=== PATIENT | male | born 1970 | race Caucasian/White ===

== ENCOUNTER → 2020-07-10 12:16 | Outpatient (CLI) | payer OTHER, MEDICARE, SELFPAY ==
[2020-07-10 13:28] LABS: Anion Gap 14.6 mEq/L (5-15); Blood Urea Nitrogen 25 mg/dl (9-20); Calcium 9.7 mg/dl (8.4-10.2); Carbon Dioxide 25 mmol/L (22.0-30.0); Chloride 103 mmol/L (98-107); Estimated Glomerular Filt Rate 79 ml/min (>60); GFR (African American) 95 ML/MIN (>60); Glucose 236 mg/dl (74-100); Potassium 4.6 mmoL/L (3.5-5.1); Sodium 138 mmol/L (136-145)
[2020-07-10 13:43] LABS: Basophils # 0.1 K/mm3 (0-0.2); Basophils % 1.1 % (0.1-2.0); Eosinophils # 0.2 K/mm3 (0.0-0.4); Eosinophils % 3.1 % (0.1-12.0); Hematocrit 42.9 % (42.0-52.0); Hemoglobin 14.5 g/dL (14.1-18.0); Lymphocytes # 2.3 K/mm3 (0.7-4.5); Lymphocytes % 35.7 % (10-50); Mean Corpuscular HGB Conc 33.9 g/dL (31.8-35.4); Mean Corpuscular Hemoglobin 28.8 pg (27.0-31.2); Mean Corpuscular Volume 84.9 fl (80-94); Mean Platelet Volume 8.1 fl (7.4-10.4); Monocytes # 0.4 K/mm3 (0.1-1.0); Monocytes % 5.6 % (1.7-9.3); Neutrophils # 3.5 K/mm3 (1.8-7.8); Neutrophils % 54.5 % (37.0-80.0); Platelet Count 276 K/mm3 (142-424); Red Blood Count 5.05 M/mm3 (4.60-6.20); Red Cell Distribution Width 14.5 % (11.5-17.5); White Blood Count 6.4 K/mm3 (4.8-10.8)
[2020-07-10 16:00] LABS: Coronavirus 19 IgG Antibody Negative (Negative); Coronavirus 19 IgM Antibody Negative (Negative)
== END ==
PROVIDERS: Visit Provider Internal Medicine
DX: Z01.818 Encounter for other preprocedural examination (principal); I20.8 Other forms of angina pectoris
CPT/HCPCS: 36415; 80048; 85025; 86328

== ENCOUNTER 2020-07-11 08:28 | Day surgery (SDC) | payer OTHER, MEDICARE, SELFPAY ==
[2020-07-11] VITALS (15 sets, daily range): BP systolic 111–186; BP diastolic 75–109; PULSE 68–86; RESP 12–18; TEMP 36.3; O2SAT 91–100; BMI 42.9
--- NOTE | 2020-07-11 | IR_ITS ---
APPROVED REPORT Patient Location: Outpatient Field Assessor: CHICO Giron RT (R) PROCEDURES Left heart catheterization Left ventriculogram Selective coronary angiogram FFR to the LAD Drug-eluting stent deployment to the proximal mid LAD INDICATION Coronary artery disease, Typical angina pectoris, Ischemic response to adenosine with an FFR of 0.69 Informed consent was obtained prior to the procedure. COMPLICATIONS none Estimated Blood Loss: less than 10 mls TECHNIQUE One percent lidocaine used to anesthetize the right anterior aspect of the wrist. The right radial artery was accessed via the Seldinger technique. A 6 [place] sheath was placed in the right radial artery. 2.5 mg of verapamil, 800 mcg of nitroglycerin, 1mg Lidocaine and 5000 U Heparin were given through the arterial sheath. The Poppa catheter was also used to perform left heart catheterization, left ventriculogram and selective coronary angiogram. At the end of the procedure therapeutic heparin was administered giving a therapeutic ACT. Initially the Poppa catheter was used for the intervention however due to poor intubation to the left main artery a JL 3 was placed into the a sending aorta and the FFR wire was normalized. The catheter was used to intubate the left main artery and the wire was placed distally into the LAD. Adenosine was infused and the FFR index nadired at 0.69. At this point a 3 mm x 34 mm resolute liberty stent was deployed at 20 logan reducing the severe stenosis to 0%. Excellent angiographic results were obtained with excellent JON-3 flow present before and after the procedure. At the end of the procedure the apparatus was removed the sheath was removed and hemostasis was achieved using TR banding patient was transferred to the postop holding area in stable condition ANGIOGRAPHIC RESULTS The left main artery Normal The left anterior descending artery Has proximal eccentric 10 to 20% stenosis followed by an additional concentric 60% stenosis. The mid LAD has tandem 40 to 50% stenoses. The circumflex artery There is a dominant vessel. A large ramus intermedius has a stent in the ostial proximal mid segment which is subtotally occluded with very scant distal filling of a small vessel. The circumflex artery itself has a proximal 20% stenosis with 20% stenosis in the terminal smaller obtuse marginal artery The right coronary artery Is nondominant and has an anterior takeoff. A stent in the proximal segment is widely patent free of in-stent restenosis with excellent proximal distal transitioning. There is additional 40 and 50% stenoses in the mid segment however the right coronary artery is small and supplies a very small amount of vascularity to the left ventricle The HOWE ventriculogram reveals Preserved with inferior wall hypokinesis estimate ejection fraction 55% The left ventricular end-diastolic pressure 20 mmHg IMPRESSION Coronary artery disease as described above Hemodynamically severe stenosis in the proximal LAD with successful stenting of the proximal to mid LAD reducing the stenosis to 0% Persistent moderate tandem lesions in the mid LAD at a 2 mm segment of vessel Preserved ejection fraction with mild regional wall motion abnormality Elevated LVEDP PLAN 1. Dual antiplatelet therapy 2. Risk factor modification 3. LDL less than 55 4. Avoidance of tobacco products 5. Cardiac rehabilitation 6. Maximize antianginal medications Electronically signed by : Boy Bahena, 07/11/2020 10:37:04
[2020-07-11 11:29] LABS: CATHL Activated Clotting Time > 400 SEC (74-125)
--- NOTE | 2020-07-11 15:27 | HMH.PHACLD ---
Jonathon Pennington has received discharge medication counseling on the following medications: PATIENT IS CURRENTLY TAKING CARVEDILOL 25 MG BID, ASPIRIN 81 MG DAILY, AND PLAVIX 75 MG DAILY. MD CHANGING PLAVIX TO BRILINTA 90 MG BID AND ADDING LISINOPRIL 10 MG DAILY. PATIENT WITH STATIN ALLERGY.
== END 2020-07-11 14:32 | disposition home or self-care (01) ==
LOC: CATHLAB 08:32
PROVIDERS: PCP Family Medicine; Visit Provider Internal Medicine
DX: I25.118 Atherosclerotic heart disease of native coronary artery with other forms of angina pectoris (principal); I11.0 Hypertensive heart disease with heart failure; I50.30 Unspecified diastolic (congestive) heart failure; I27.20 Pulmonary hypertension, unspecified; I25.2 Old myocardial infarction; Z95.5 Presence of coronary angioplasty implant and graft; E11.9 Type 2 diabetes mellitus without complications; Z88.0 Allergy status to penicillin; Z88.1 Allergy status to other antibiotic agents; Z88.8 Allergy status to other drugs, medicaments and biological substances; Z79.4 Long term (current) use of insulin; Z79.82 Long term (current) use of aspirin; Z79.899 Other long term (current) drug therapy
CPT/HCPCS: 85347; 92928; 93458; 93571; 99152; 99153; C1725; C1769; C1876; C9600; J0153; J1644; J2405; Q9967

== ENCOUNTER → 2020-10-13 15:04 | Outpatient (CLI) | payer OTHER, MEDICARE, SELFPAY ==
--- NOTE | 2020-10-13 15:06 | CA_ITS ---
APPROVED REPORT EXAM: Comprehensive 2D, Doppler, and color-flow Echocardiogram [place] Worker: Rachel Carney RT(R) Ht: 5 ft 6 in Wt: 267lbs BSA: 2.26 BP: 133/73 mmHg Indications: CP, ex smoker, HTN, DM, SOB, SWEET, obesity, hyperlipidemia, CAD, DD, emphysema, stent, GERD Echo Enhancing Agent Indication: Endocardial border delineation Agent(s) / Amount(s) Used: Definity 2 cc 2D Dimensions LVOT 1.94 cm (M/F) 1.5-2.5 M-Mode Dimensions RVDd 2.12 cm (0.9-2.6) LA Diam 3.28 cm (1.9-4.0) LVDd 4.96 cm (3.5-5.7) Ao Diam 3.05 cm (2.0-3.7) LVDs 3.79 cm (3.5-5.7) IVSd 0.83 cm (0.6-1.1) PWd 0.83 cm (0.6-1.1) EF (Teich) 46.90% FS 23.60% EDV (Teich) 116.10 mL ESV (Teich) 61.60 mL LV Diastology E Decel Time 233.00 (160-240 msec) E/A Ratio 1.2 MED E' 6.50 (< 7 cm/sec) E'/MED E' Ratio 14.14 (>14) LAT E' 8.30 (<10 cm/sec) E/LAT E' Ratio 11.07 (>14) Mitral Valve MV E Max Caden. 92.00 (40-130 cm/s) MV A Velocity 77.00 (40-130 cm/s) E/A Ratio 1.20 MV Decel. Time 233.00 (160-240 ms) MV PHT 68.00 ms Left Ventricle Left atrium is mildly enlarged, left ventricle is normal size, mild concentric left ventricular hypertrophy, visually estimated ejection fraction 55% with no regional wall motion abnormality, grade 1 diastolic dysfunction seen without tissue Doppler evidence of raise left atrial pressure. Definity contrast was utilized to delineate the endocardial surfaces. Right Ventricle Right atrium and right ventricle are mildly enlarged with normal contractility. Aortic Valve Aortic valve is minimally thickened and fibrosed, there is no aortic stenosis or aortic insufficiency. Mitral Valve Mitral valve is grossly normal, there is mild mitral regurgitation. Tricuspid Valve Tricuspid valve grossly normal, there is mild tricuspid regurgitation, tricuspid regurgitation jet velocity is inadequate for calculation of the right ventricular systolic pressure. Pulmonic Valve Pulmonic valve is poorly visualized. Aortic root is normal size. Pericardium No significant pericardial effusion noted. Conclusion 1. Mild biatrial enlargement, normal left ventricular size, mild concentric left ventricular hypertrophy, visually estimated ejection fraction 55% with no regional wall motion abnormality, grade 1 diastolic dysfunction seen without tissue Doppler evidence of raise left atrial pressure. 2. Mildly enlarged right ventricle with normal contractility. 3. Mild mitral and tricuspid regurgitation. 4. No significant pericardial effusion noted. Electronically signed by : Julio Palma, 10/14/2020 18:33:10
== END ==
PROVIDERS: PCP Family Medicine; Visit Provider Urology
DX: R07.89 Other chest pain (principal); R06.00 Dyspnea, unspecified; I11.9 Hypertensive heart disease without heart failure; I25.10 Atherosclerotic heart disease of native coronary artery without angina pectoris; I27.20 Pulmonary hypertension, unspecified; E11.9 Type 2 diabetes mellitus without complications; E66.01 Morbid (severe) obesity due to excess calories; E78.2 Mixed hyperlipidemia; H53.8 Other visual disturbances; J43.9 Emphysema, unspecified; Z79.4 Long term (current) use of insulin
CPT/HCPCS: 93306; Q9957

== ENCOUNTER → 2020-11-10 14:15 | Outpatient (CLI) | payer OTHER, MEDICARE, SELFPAY ==
--- NOTE | 2020-11-10 14:29 | CT_ITS ---
PROCEDURE: CT CHEST WO CON CLINICAL INDICATION: chest pain/dyspnea [place] since having a heart attack 5 years ago Worsening in the last year COMPARISON: No exams were available for comparison TECHNIQUE: Axial images obtained with sagittal and coronal reformats. All CT scans at the facility use one or more dose reduction, viz: automated exposure control, ma/kV adjustment per patient size (including targeted exams where dose is matched to indication, i.e. head), or iterative reconstruction technique. FINDINGS: HEART AND MEDIASTINAL STRUCTURES: Prior thyroidectomy. No mediastinal or hilar mass. Coronary artery stents and or calcification. No evidence of aortic aneurysm. LUNGS AND PLEURAL SPACES: There is a noncalcified 4 mm nodule right upper lobe posteriorly image 16. Subpleural 4 mm nodule right upper lobe anteriorly image 36. 4 mm fissural nodule right minor fissure image 37. 5 mm subpleural nodule right middle lobe anteriorly image 44. 4 mm left upper lobe anteriorly image 27 BONY STRUCTURES: Degenerative changes thoracic spine UPPER ABDOMEN: Fatty liver ADDITIONAL FINDINGS: Gynecomastia IMPRESSION: 1. Scattered small pulmonary nodules as detailed above. These are nonspecific and could be post inflammatory/infectious or neoplastic. Consider six-month follow-up to confirm stability. 2. Other nonacute findings as described above. No acute finding Dictated by: Manoj Carrasco MD 11/11/2020 12:10 Manoj Carrasco MD in [place] 11/11/2020 12:10
== END ==
PROVIDERS: PCP Family Medicine; Visit Provider Urology
DX: R07.9 Chest pain, unspecified (principal); R06.00 Dyspnea, unspecified; J44.9 Chronic obstructive pulmonary disease, unspecified; I11.9 Hypertensive heart disease without heart failure; I25.10 Atherosclerotic heart disease of native coronary artery without angina pectoris; I27.20 Pulmonary hypertension, unspecified; E11.9 Type 2 diabetes mellitus without complications; E66.9 Obesity, unspecified; E78.5 Hyperlipidemia, unspecified; H53.8 Other visual disturbances
CPT/HCPCS: 71250

== ENCOUNTER → 2020-12-15 10:29 | Outpatient (CLI) | payer OTHER, MEDICARE, SELFPAY ==
[2020-12-15 11:05] LABS: Basophils # 0.1 K/mm3 (0-0.2); Basophils % 1.5 % (0.1-2.0); Eosinophils # 0.5 K/mm3 (0.0-0.4); Hemoglobin 11.9 g/dL (14.1-18.0); Lymphocytes # 2.1 K/mm3 (0.7-4.5); Lymphocytes % 29.7 % (10-50); Mean Corpuscular HGB Conc 33.9 g/dL (31.8-35.4); Mean Corpuscular Hemoglobin 28.4 pg (27.0-31.2); Mean Corpuscular Volume 83.9 fl (80-94); Mean Platelet Volume 7.3 fl (7.4-10.4); Monocytes # 0.4 K/mm3 (0.1-1.0); Neutrophils # 4.1 K/mm3 (1.8-7.8); Neutrophils % 56.8 % (37.0-80.0); Platelet Count 271 K/mm3 (142-424); Red Blood Count 4.17 M/mm3 (4.60-6.20); Red Cell Distribution Width 15.2 % (11.5-17.5); White Blood Count 7.2 K/mm3 (4.8-10.8)
[2020-12-15 11:15] LABS: Chloride 102 mmol/L (98-107); Potassium 4.5 mmoL/L (3.5-5.1); Sodium 137 mmol/L (136-145)
[2020-12-15 11:18] LABS: Anion Gap 13.5 mEq/L (5-15); Blood Urea Nitrogen 25 mg/dl (9-20); Carbon Dioxide 26 mmol/L (22.0-30.0); Estimated Glomerular Filt Rate 79 ml/min (>60); GFR (African American) 95 ML/MIN (>60)
[2020-12-15 11:19] LABS: Calcium 9.6 mg/dl (8.4-10.2); Glucose 282 mg/dl (74-100)
[2020-12-15 11:45] LABS: Thyroid Stimulating Hormone 2.11 uIU/mL (0.465-4.68)
[2020-12-20 00:05] LABS: Aspergillus flavus Negative (Neg:<1:1); Aspergillus fumigatus Negative (Neg:<1:1); Aspergillus niger Negative (Neg:<1:1)
[2020-12-20 05:07] LABS: Blastomyces Antibody Negative (Neg:<1:1)
[2020-12-21 02:17] LABS: D001-IgE D pteronyssinus 0.11 kU/L (Class 0/I); D002-IgE D farinae <0.10 kU/L (Class 0); E001-IgE Cat Dander <0.10 kU/L (Class 0); E005-IgE Dog Dander <0.10 kU/L (Class 0); G002-IgE Bermuda Grass <0.10 kU/L (Class 0); G006-IgE Timothy Grass 0.17 kU/L (Class 0/I); I006-IgE Cockroach, German <0.10 kU/L (Class 0); Immunoglobulin E, Total 115 IU/mL (6-495); M001-IgE Penicillium chrysogen <0.10 kU/L (Class 0); M002-IgE Cladosporium herbarum <0.10 kU/L (Class 0); M003-IgE Aspergillus fumigatus <0.10 kU/L (Class 0); M006-IgE Alternaria alternata <0.10 kU/L (Class 0); T001-IgE Maple/Box Elder <0.10 kU/L (Class 0); T003-IgE Common Silver Birch <0.10 kU/L (Class 0); T006-IgE Cedar, Mountain 0.14 kU/L (Class 0/I); T007-IgE Oak, White 0.15 kU/L (Class 0/I); T008-IgE Elm, American <0.10 kU/L (Class 0); T010-IgE Walnut <0.10 kU/L (Class 0); T011-IgE Maple Leaf Sycamore <0.10 kU/L (Class 0); T014-IgE Cottonwood <0.10 kU/L (Class 0); T015-IgE Ash, White <0.10 kU/L (Class 0); T022-IgE Pecan, Hickory <0.10 kU/L (Class 0); T070-IgE White Mulberry <0.10 kU/L (Class 0); W001-IgE Ragweed, Short <0.10 kU/L (Class 0); W011-IgE Thistle, Russian <0.10 kU/L (Class 0); W014-IgE Pigweed, Common <0.10 kU/L (Class 0); W018-IgE Sheep Sorrel 0.11 kU/L (Class 0/I)
[2020-12-21 15:17] LABS: E072-IgE Mouse Urine <0.10 kU/L (Class 0)
== END ==
PROVIDERS: Internal Medicine Cardiovascular Disease; Visit Provider Internal Medicine Pulmonary Disease
DX: J84.10 Pulmonary fibrosis, unspecified (principal); J45.909 Unspecified asthma, uncomplicated; I20.9 Angina pectoris, unspecified; I11.9 Hypertensive heart disease without heart failure; E78.5 Hyperlipidemia, unspecified; I25.2 Old myocardial infarction; I27.20 Pulmonary hypertension, unspecified; E03.9 Hypothyroidism, unspecified
CPT/HCPCS: 36415; 80048; 82533; 82785; 84443; 85025; 86003; 86606; 86612

== ENCOUNTER → 2021-05-09 14:50 | Outpatient (CLI) | payer OTHER, MEDICARE, SELFPAY ==
--- NOTE | 2021-05-09 15:20 | PC.NURSE ---
PFT complete without incident. Albuterol 0.083% given via HHN, per protocol, Pt tolerated tx well.
== END ==
PROVIDERS: PCP Family Medicine; Visit Provider Internal Medicine Pulmonary Disease
DX: R06.09 Other forms of dyspnea (principal)
CPT/HCPCS: 94060; 94726; 94729

== ENCOUNTER → 2021-06-18 14:55 | Outpatient (CLI) | payer OTHER, MEDICARE, SELFPAY ==
--- NOTE | 2021-06-18 14:55 | CT_ITS ---
PROCEDURE: CT CHEST WO CON CLINICAL INDICATION: 6 mnth follow up COMPARISON: CT CT CHEST WO CON from 11/10/2020 TECHNIQUE: Axial images obtained with sagittal and coronal reformats. All CT scans at the facility use one or more dose reduction, viz: automated exposure control, ma/kV adjustment per patient size (including targeted exams where dose is matched to indication, i.e. head), or iterative reconstruction technique. FINDINGS: HEART AND MEDIASTINAL STRUCTURES: Prior thyroidectomy. No mediastinal or hilar mass or adenopathy. Numerous coronary artery stents and or calcifications. LUNGS AND PLEURAL SPACES: There has been no significant change in the numerous small pulmonary nodules. No new nodules are evident. No infiltrates or effusions. BONY STRUCTURES: No acute bony abnormalities apparent. UPPER ABDOMEN: Fatty liver ADDITIONAL FINDINGS: No other significant abnormalities. IMPRESSION: Stable CT appearance of the chest with no change in the small pulmonary nodules. Suggest 12 month follow-up to confirm 18 month stability Dictated by: Manoj Carrasco MD 06/19/2021 10:14 Manoj Carrasco MD in [place] 06/19/2021 10:14
== END ==
PROVIDERS: PCP Family Medicine; Visit Provider Internal Medicine Pulmonary Disease
DX: R91.8 Other nonspecific abnormal finding of lung field (principal)
CPT/HCPCS: 71250

== ENCOUNTER → 2021-07-31 13:41 | Outpatient (CLI) | payer OTHER, MEDICARE, SELFPAY ==
[2021-07-31 15:14] LABS: Triiodothryronine (T3) Uptake 32 % (23.5-40.5)
[2021-07-31 15:15] LABS: Free Thyroxine Index 3.8 ug/dL (5.93-13.13)
[2021-07-31 15:29] LABS: Thyroid Stimulating Hormone 4.33 uIU/mL (0.465-4.68)
[2021-07-31 15:40] LABS: Anion Gap 12.3 mEq/L (5-15); Blood Urea Nitrogen 37 mg/dl (9-20); Calcium 9.5 mg/dl (8.4-10.2); Carbon Dioxide 28 mmol/L (22.0-30.0); Chloride 102 mmol/L (98-107); Estimated Glomerular Filt Rate 70 ml/min (>60); GFR (African American) 85 ML/MIN (>60); Glucose 212 mg/dl (74-100); Magnesium 1.6 mg/dl (1.6-2.3); Potassium 5.3 mmoL/L (3.5-5.1); Sodium 137 mmol/L (136-145)
[2021-07-31 15:48] LABS: Intact Parathyroid Hormone 79.2 pg/mL (7.5-53.5); NT Pro Brain Natriuretic Pep. 34.3 pg/mL (0-125)
== END ==
PROVIDERS: Visit Provider Physician Assistant
DX: R06.00 Dyspnea, unspecified (principal); I51.89 Other ill-defined heart diseases; M79.10 Myalgia, unspecified site; M62.838 Other muscle spasm
CPT/HCPCS: 36415; 80048; 83735; 83880; 83970; 84436; 84443; 84479

== ENCOUNTER → 2021-11-09 07:50 | Outpatient (CLI) | payer BC, MEDICARE, SELFPAY ==
--- NOTE | 2021-11-09 07:50 | CT_ITS ---
FINAL REPORT TECHNIQUE: Thin section axial CT images of the facial bones and sinuses were obtained without contrast. Coronal reformatted images were also obtained.This study was performed with techniques to keep radiation doses as low as reasonably achievable, (ALARA). Individualized dose reduction techniques using automated exposure control or adjustment of mA and/or kV according to the patient''''s size were employed. CLINICAL HISTORY: chronic sinusitis, difficulty swallowing FINDINGS: There is mucosal thickening of multiple ethmoid air cells and of the bilateral maxillary sinuses and the frontal sinuses. A mucous retention cyst or polyp is seen in the lateral left maxillary sinus measuring 14 mm. There is narrowing of the bilateral maxillary sinus ostia secondary to mucosal thickening. There is mild leftward nasal septal deviation. No fluid levels are identified. The ostiomeatal units have an unremarkable appearance. No fracture or acute bony abnormality is identified. IMPRESSION: Sinus disease as above. Reviewed, Interpreted and Dictated by Chandler Rizzo III, MD Transcribed by Delfina Jett Authenticated by Chandler Rizzo III, MD on 11/09/2021 09:54:10 AM [facility]
--- NOTE | 2021-11-09 07:50 | FL_ITS ---
FINAL REPORT CLINICAL HISTORY: . dysphagia; fluro time: 1:33; dose: 160.20 mGy FINDINGS: ESOPHAGRAM HISTORY: dysphagia PROCEDURE: The patient ingested barium. Spot and overhead films were obtained. FINDINGS: The esophagus is normal. There is no hiatal hernia. There is no gastroesophageal reflux. Peristalsis is normal.A 13 mm barium tablet was administered. This appeared to be delayed in passage in the upper thoracic esophagus. However, subsequent swallows of barium demonstrate no appreciable narrowing and the tablet passed. IMPRESSION: Normal esophagram. Films reviewed , interpreted and dictated by Dr. Rizzo Transcribed by Wade Shea PA-C. Reviewed, Interpreted and Dictated by Chandler Rizzo III, MD Transcribed by ARMIDA Lucero Authenticated by Chandler Rizzo III, MD on 11/09/2021 09:06:[address] [facility]
== END ==
PROVIDERS: PCP Family Medicine; Visit Provider Otolaryngology
DX: R13.10 Dysphagia, unspecified (principal); E03.9 Hypothyroidism, unspecified; J32.9 Chronic sinusitis, unspecified
CPT/HCPCS: 36415; 70486; 74220; 84443

== ENCOUNTER → 2022-01-09 11:30 | Outpatient (CLI) | payer BC, MEDICARE, SELFPAY ==
[2022-01-10 08:26] LABS: MANUAL DIFFERENTIAL MANUAL DIFFERENTIAL (MANUAL DIFF)
[2022-01-10 09:10] LABS: Basophils # 0.1 K/mm3 (0-0.2); Basophils % 1.2 % (0.1-2.0); Eosinophils # 0.4 K/mm3 (0.0-0.4); Eosinophils % 7.4 % (0.1-12.0); Hematocrit 43.6 % (42.0-52.0); Hemoglobin 14.8 g/dL (14.1-18.0); Lymphocytes # 1.9 K/mm3 (0.7-4.5); Mean Corpuscular Hemoglobin 31.1 pg (27.0-31.2); Mean Corpuscular Volume 91.6 fl (80-94); Mean Platelet Volume 8.4 fl (7.4-10.4); Monocytes # 0.4 K/mm3 (0.1-1.0); Monocytes % 5.9 % (1.7-9.3); Neutrophils # 3.3 K/mm3 (1.8-7.8); Neutrophils % 54.5 % (37.0-80.0); Platelet Count 261 K/mm3 (142-424); Red Blood Count 4.75 M/mm3 (4.60-6.20); Red Cell Distribution Width 13.2 % (11.5-17.5)
[2022-01-10 10:00] LABS: Lymphocytes % 22 % (10-50); Monocytes % 5 % (2-9); Neutrophils % 73 % (42-76); Platelet Estimate Normal; RBC Morphology Normal; Total Cells Counted 100
[2022-01-10 10:10] LABS: Alanine Aminotransferase 17 U/L (12-78); Albumin Level 4.3 g/dl (3.5-5.0); Alkaline Phosphatase 69 U/L (38-126); Anion Gap 12.7 mEq/L (5-15); Aspartate Amino Transferase 18 U/L (17-59); Bilirubin,Total 0.3 mg/dl (0.2-1.3); Blood Urea Nitrogen 17 mg/dl (9-20); Calcium 9.2 mg/dl (8.4-10.2); Carbon Dioxide 27 mmol/L (22.0-30.0); Chloride 103 mmol/L (98-107); Estimated Glomerular Filt Rate 102 ml/min (>60); GFR (African American) 123 ML/MIN (>60); Globulin 2.2 g/dL (1.3-3.2); Glucose 110 mg/dl (74-100); Potassium 3.7 mmoL/L (3.5-5.1); Sodium 139 mmol/L (136-145); Total Protein,Serum 6.5 g/dl (6.3-8.2)
== END ==
PROVIDERS: PCP Family Medicine; Visit Provider Otolaryngology
DX: J32.9 Chronic sinusitis, unspecified (principal); J34.3 Hypertrophy of nasal turbinates; Z20.822 Contact with and (suspected) exposure to COVID-19
CPT/HCPCS: 36415; 80053; 85007; 85014; 85018; 85048; 85049; C9803; U0003; U0005

== ENCOUNTER 2022-05-30 13:26 | Inpatient (IN) | payer BC, MEDICARE, SELFPAY ==
[2022-05-30 12:01] LABS: Basophils # 0.1 K/mm3 (0-0.2); Basophils % 1.1 % (0.1-2.0); Eosinophils # 0.2 K/mm3 (0.0-0.4); Hematocrit 39.4 % (42.0-52.0); Hemoglobin 12.9 g/dL (14.1-18.0); Lymphocytes # 1.8 K/mm3 (0.7-4.5); Lymphocytes % 28.3 % (10-50); Mean Corpuscular HGB Conc 32.7 g/dL (31.8-35.4); Mean Corpuscular Hemoglobin 28.2 pg (27.0-31.2); Mean Corpuscular Volume 86.3 fl (80-94); Monocytes # 0.4 K/mm3 (0.1-1.0); Monocytes % 5.8 % (1.7-9.3); Neutrophils # 3.9 K/mm3 (1.8-7.8); Neutrophils % 61.8 % (37.0-80.0); Platelet Count 316 K/mm3 (142-424); Red Blood Count 4.57 M/mm3 (4.60-6.20); Red Cell Distribution Width 15.1 % (11.5-17.5); White Blood Count 6.4 K/mm3 (4.8-10.8)
[2022-05-30 12:27] LABS: Chloride 103 mmol/L (98-107); Sodium 139 mmol/L (136-145)
[2022-05-30 12:28] LABS: Potassium 4.6 mmoL/L (3.5-5.1)
[2022-05-30 12:29] LABS: Troponin I 0.06 ng/ml (0.00-0.034)
[2022-05-30 12:30] LABS: Alanine Aminotransferase 35 U/L (12-78); Albumin Level 3.9 g/dl (3.5-5.0); Alkaline Phosphatase 87 U/L (38-126); Anion Gap 15.6 mEq/L (5-15); Aspartate Amino Transferase 41 U/L (17-59); Bilirubin,Unconjugated 0.1 mg/dL (0.0-1.1); Blood Urea Nitrogen 25 mg/dl (9-20); Calcium 8.9 mg/dl (8.4-10.2); Carbon Dioxide 25 mmol/L (22.0-30.0); Estimated Glomerular Filt Rate 101 ml/min (>60); GFR (African American) 122 ML/MIN (>60); Glucose 276 mg/dl (74-100); Total Protein,Serum 6.2 g/dl (6.3-8.2)
[2022-05-30 12:31] LABS: Bilirubin,Indirect 0.1 mg/dL (0.0-0.9); Bilirubin,Total < 0.1 mg/dl (0.2-1.3)
[2022-05-30 12:47] LABS: Free T4 (Free Thyroxine) 2.15 ng/dl (0.78-2.19)
[2022-05-30 13:02] LABS: Thyroid Stimulating Hormone < 0.02 uIU/mL (0.465-4.68)
--- NOTE | 2022-05-30 14:27 | PC.NURSE ---
patient walked to floor from front [facility]
[2022-05-30 14:35] VITALS: PULSE 80
[2022-05-30 14:37] VITALS: BP 167/86; PULSE 75; RESP 14; TEMP 36.7; O2SAT 96; BMI 40.9
--- NOTE | 2022-05-30 15:18 | EXP.CARD.PN ---
Subjective Subjective Date: 05/30/22 Time: 15:23 Interval history: Office visit today Patient here for CP/angina. Has been having cp & pressure with activity. see HPI SOB with cp CAD is present. DOREEN in 07/2020 to LAD with 50-60% stenosis to RCA DAPT with ASA and Plavix. Seems like all started after having a stent placed for kidney stone, with heavy dose of contrast BP is good today. Pt wt is down 4 pounds. LDL goal is < 55, LDL is 76. Pt is not on a statin, he couldn't tolerate lipitor and he stopped the crestor thinking of his muscle aches but it hasn't improved so will restart this. DM is present, managed by PCP. ECHO in 10/2020 showed EF of 55% with diastolic dysfunction. EKG is NSR, low voltage QRS, T wave abnormality, consider inferior ischemia, rate is 81 bpm. BMP, CBC, Troponin, Liver, TSH, Free T4 today. will get a GXT Myoview to rule out ischemia due to angina. Start Ranexa 500 mg BID for angina. RTC 1 week, and sooner as needed. This document was scribed by me, Ling Boyle RN for Ashley Fairchild APRN. The patient's troponin is positive at 0.06 consistent with a non-ST elevation myocardial infarction. The patient has been contacted and will return to [facility] for admission due to his non-STEMI. Will admit the patient for a non-STEMI and the patient will undergo left cardiac catheterization tomorrow. The patient will be n.p.o. after midnight. We will get a chest x-ray. Will repeat labs in the morning. Clinical evaluation and indication for diagnostic coronary angiography includes Known CAD, New Onset Angina <= 2 months and Worsening Angina Patient is describing chest pain symptom as Typical Angina Clinical risk factors of nonstemi, CAD, HTN, HLD, DM Anti-anginal Medication therapy includes: Betablocker and Ranolozine Will plan to proceed with LHC/Coronary angiography with R radial access. The patient has been educated on the risks, benefits and alternatives of proceeding with LHC/Coronary angiography with R radial access. The patient verbalizes understanding and is agreeable in proceeding with the procedure. SCAI: A7 Exam Data for Last 24 hours Vital signs and Labs for Last 24 Hours: Temp Pulse Resp BP Pulse Ox 98.1 F 75 14 167/86 H 96 05/30/22 14:37 05/30/22 14:37 05/30/22 14:37 05/30/22 14:37 05/30/22 14:37 Laboratory Results - last 24 hr 05/30/22 11:48: WBC 6.4, RBC 4.57 L, Hgb 12.9 L, Hct 39.4 L, MCV 86.3, MCH 28.2, MCHC 32.7, RDW 15.1, Plt Count 316, MPV 8.0, Neut % (Auto) 61.8, Lymph % (Auto) 28.3, Rapides % (Auto) 5.8, Eos % (Auto) 3.0, Baso % (Auto) 1.1, Neut # (Auto) 3.9, Lymph # (Auto) 1.8, Rapides # (Auto) 0.4, Eos # (Auto) 0.2, Baso # (Auto) 0.1 05/30/22 11:48: Sodium 139, Potassium 4.6, Chloride 103, Carbon Dioxide 25, Anion Gap 15.6 H, BUN 25 H, Creatinine 0.80, Estimated GFR 101, Est GFR ( Amer) 122, Glucose 276 H, Calcium 8.9, Total Bilirubin < 0.1 L, Direct Bilirubin 0.0, Conjugated Bilirubin 0.0, Indirect Bilirubin 0.1, Unconjugated Bilirubin 0.1, AST 41, ALT 35, Alkaline Phosphatase 87, Total Protein 6.2 L, Albumin 3.9, TSH < 0.02 L 05/30/22 11:48: Free T4 2.15 05/30/22 11:48: Troponin I 0.06 H I & O for Last 24 hours: Intake & Output 05/28/22 05/29/22 05/30/22 05/31/22 11:59 11:59 11:59 11:59 Weight 253 lb 9 oz Progress Note: A&P Assessment and plan (1) NSTEMI (non-ST elevated myocardial infarction): Status: Acute (2) CAD (coronary artery disease): Status: Chronic (3) Hypertensive heart disease: Status: Chronic (4) HLD (hyperlipidemia): Status: Chronic (5) Pulmonary HTN: Status: Chronic (6) Diabetes mellitus: Status: Chronic (7) Fibrosis of lung: Status: Chronic (8) Chronic pericarditis: Status: Chronic (9) COPD (chronic obstructive pulmonary disease): Status: Chronic Assessment and Plan Assessment and Plan for All Diagnoses:: 1. C tomorrow. 2. Echo 3. CXR, labs 4. Con
--- NOTE | 2022-05-30 15:23 | XR_ITS ---
PROCEDURE INFORMATION: Exam: XR Chest Exam date and time: 05/30/2022 4:33 PM Age: 52 years old Clinical indication: Prior surgery; Surgery date: 6+ months; Patient HX: Cough, chest pain, HX of cardiac stents placed. ; Additional info: Chest pain, SOA TECHNIQUE: Imaging protocol: Radiologic exam of the chest. Views: 2 views. COMPARISON: CT CHEST WO CON 06/18/2021 3:02 PM FINDINGS: Lungs: Unremarkable. No consolidation. Pleural spaces: Unremarkable. No pleural effusion. No pneumothorax. Heart/Mediastinum: Unremarkable. No cardiomegaly. Bones/joints: Unremarkable. IMPRESSION: No acute cardiopulmonary disease.
--- NOTE | 2022-05-30 15:23 | CA_ITS ---
APPROVED REPORT EXAM: Comprehensive 2D, Doppler, and color-flow Echocardiogram Study Assistant: Rachel Carney RT(R) Ht: 5 ft 6 in Wt: 253lbs BSA: 2.21 BP: 167/86 mmHg Indications: NSTEMI, angina, CP, COPD, ex smoker, HTN, DM, obesity, hyperlipidemia, PHTN, fibrosis of lung, chronic pericarditis. TDE due to body habitus. 2D Dimensions LVOT 2.01 cm (M/F) 1.5-2.5 M-Mode Dimensions RVDd 3.04 cm (0.9-2.6) LA Diam 3.62 cm (1.9-4.0) LVDd 5.11 cm (3.5-5.7) Ao Diam 2.73 cm (2.0-3.7) LVDs 3.82 cm (3.5-5.7) IVSd 0.93 cm (0.6-1.1) PWd 0.71 cm (0.6-1.1) EF (Teich) 49.60% FS 25.20% EDV (Teich) 124.40 mL ESV (Teich) 62.70 mL LV Diastology E Decel Time 150.00 (160-240 msec) E/A Ratio 1.3 MED E' 7.30 (< 7 cm/sec) E'/MED E' Ratio 13.66 (>14) LAT E' 8.10 (<10 cm/sec) E/LAT E' Ratio 12.31 (>14) Mitral Valve MV E Max Caden. 100.00 (40-130 cm/s) MV A Velocity 78.00 (40-130 cm/s) E/A Ratio 1.28 MV Decel. Time 150.00 (160-240 ms) MV PHT 44.00 ms Left Ventricle Left atrium is mildly enlarged, left ventricle is normal size mild concentric left ventricular hypertrophy, estimated ejection fraction 55% with no regional wall motion abnormality, diastolic parameters are inconclusive. Right Ventricle Right atrium and right ventricle are mildly enlarged with normal contractility. Aortic Valve Aortic valve is grossly normal there is no aortic stenosis or aortic insufficiency. Mitral Valve Mitral valve grossly normal, there is trace mitral regurgitation. Tricuspid Valve Tricuspid valve grossly normal, there is trace tricuspid regurgitation, tricuspid regurgitation jet velocity is inadequate for calculation of the right ventricular systolic pressure. Pulmonic Valve Pulmonic valve is poorly visualized. Great Vessels Aortic root is normal size. Inferior vena cava is poorly visualized. Pericardium No significant pericardial effusion noted. Conclusion 1. Mild biatrial enlargement, normal left ventricular size, mild concentric left ventricular hypertrophy, estimated ejection fraction 55% with no regional wall motion abnormality, diastolic parameters are inconclusive. 2. Mildly enlarged right ventricle with normal contractility. 3. Trace mitral and tricuspid regurgitation. 4. No significant pericardial effusion. 5. Inferior vena cava is poorly visualized. Electronically signed by : Julio Palma MD 05/31/2022 14:49:51
[2022-05-30 16:00] VITALS: PULSE 70
[2022-05-30 16:45] LABS: Basophils # 0.1 K/mm3 (0-0.2); Basophils % 1.4 % (0.1-2.0); Eosinophils # 0.2 K/mm3 (0.0-0.4); Eosinophils % 2.9 % (0.1-12.0); Hematocrit 37.5 % (42.0-52.0); Hemoglobin 12.6 g/dL (14.1-18.0); Lymphocytes # 1.9 K/mm3 (0.7-4.5); Lymphocytes % 29.7 % (10-50); Mean Corpuscular HGB Conc 33.6 g/dL (31.8-35.4); Mean Corpuscular Hemoglobin 28.4 pg (27.0-31.2); Mean Corpuscular Volume 84.3 fl (80-94); Mean Platelet Volume 7.8 fl (7.4-10.4); Monocytes # 0.4 K/mm3 (0.1-1.0); Monocytes % 6.2 % (1.7-9.3); Neutrophils # 3.8 K/mm3 (1.8-7.8); Neutrophils % 59.8 % (37.0-80.0); Platelet Count 291 K/mm3 (142-424); Red Blood Count 4.45 M/mm3 (4.60-6.20); White Blood Count 6.4 K/mm3 (4.8-10.8)
[2022-05-30 16:55] LABS: Chloride 104 mmol/L (98-107)
[2022-05-30 16:56] LABS: Potassium 4.2 mmoL/L (3.5-5.1); Sodium 140 mmol/L (136-145)
[2022-05-30 16:58] LABS: Alanine Aminotransferase 36 U/L (12-78); Alkaline Phosphatase 84 U/L (38-126); Anion Gap 15.2 mEq/L (5-15); Aspartate Amino Transferase 42 U/L (17-59); Bilirubin,Unconjugated 0.2 mg/dL (0.0-1.1); Blood Urea Nitrogen 20 mg/dl (9-20); Carbon Dioxide 25 mmol/L (22.0-30.0); Cholesterol 224 mg/dl (140-200); Creatinine Clearance Estimated 174 mL/min (50-200); Estimated Glomerular Filt Rate 101 ml/min (>60); GFR (African American) 122 ML/MIN (>60)
[2022-05-30 16:59] LABS: Calcium 8.7 mg/dl (8.4-10.2); Chol/HDL Ratio 9.3 (1-3.5); Glucose 201 mg/dl (74-100); HDL Cholesterol 24 mg/dl (40-60); Total Protein,Serum 6.5 g/dl (6.3-8.2)
[2022-05-30 17:01] LABS: Triglycerides 481 mg/dl (30-150)
[2022-05-30 17:10] LABS: Direct LDL Cholesterol 99.63 mg/dL (100-129); Troponin I 0.06 ng/ml (0.00-0.034)
--- NOTE | 2022-05-30 17:15 | PC.NURSE ---
Patient direct admit today for elevated troponins. Heart Cath scheduled for tomoorw. VSS, B/L lungs clear to auscultation. When arrived to room patient c/o of intermittent chest pain but states goes away once he rests. IV access placed in RAC x 3 sticks. Echocardiogram done along with Chest xray. Patient has shown no s/s of acute distress, call light within reach, bed at lowest level for safety.
[2022-05-30 17:24] LABS: Bilirubin,Direct 0.1 mg/dl (0.0-0.4); Bilirubin,Indirect 0.2 mg/dL (0.0-0.9); Bilirubin,Total 0.3 mg/dl (0.2-1.3)
[2022-05-30 17:52] LABS: Hemoglobin A1C 10.7 % (4.0-6.0)
[2022-05-30 19:52] VITALS: BP 143/97; PULSE 78; RESP 15; TEMP 36.6; O2SAT 98
[2022-05-30 20:00] VITALS: PULSE 80; PULSE 91; O2SAT 97
[2022-05-30 22:20] LABS: POC Glucose,Bedside 296 (70-110)
[2022-05-30 22:24] LABS: Troponin I 0.06 ng/ml (0.00-0.034)
[2022-05-30 23:46] VITALS: BP 153/73; PULSE 91; RESP 14; TEMP 36.9; O2SAT 97
[2022-05-31] VITALS (22 sets, daily range): BP systolic 103–161; BP diastolic 57–97; PULSE 60–98; RESP 12–18; TEMP 36.6–36.9; O2SAT 95–100; BMI 40.8
--- NOTE | 2022-05-31 | IR_ITS ---
APPROVED REPORT Patient Location: Inpatient PROCEDURES Left heart catheterization Left ventriculogram Selective coronary angiogram INDICATION Known coronary artery disease, Acute non-ST elevation myocardial infarction Informed consent was obtained prior to the procedure. COMPLICATIONS None Estimated Blood Loss: Less than 10 mls TECHNIQUE One percent lidocaine used to anesthetize the right anterior aspect of the wrist. The right radial artery was accessed via the Seldinger technique. A 6 [place] sheath was placed in the right radial artery. 2.5 mg of verapamil, 800 mcg of nitroglycerin, 1mg Lidocaine and 5000 U Heparin were given through the arterial sheath. The papa catheter, 5 [place] BAZAN catheter and then ultimately an AR-1 6 [place]ian guide catheter were used to was also used to perform left heart catheterization, left ventriculogram and selective coronary angiogram. The AR-1 guide catheter was required to cannulate the anterior takeoff of the dominant right coronary at the end of the procedure the sheath was removed good hemostasis was achieved using Traclet band, patient was transferred to the postop holding area in stable condition. ANGIOGRAPHIC RESULTS The left main artery Has a distal 10 to 20% stenosis The left anterior descending artery Has a proximal concentric 70% stenosis with a mid vessel concentric 80% stenosis followed by additional 60% tandem stenoses. A second diagonal artery has a proximal 80 to 90% stenosis The circumflex artery Is nondominant and has proximal 50% with a mid vessel 90% stenosis. Ramus intermedius has stents in the ostial proximal mid segment and the vessel is subtotally occluded with no distal vascularity identified The right coronary artery Is a dominant vessel and has stents in the ostial and proximal segments are widely patent. The mid right coronary artery then has 50 and 70% stenoses with distal 90% stenosis The HOWE ventriculogram reveals Dilated ventricle with ejection fraction estimated 45 to 50% The left ventricular end-diastolic pressure 20 mmHg IMPRESSION Severe 3 vessel coronary disease Dilated ventricle with reduced ejection fraction Borderline elevated LVEDP PLAN 1. Discontinue dual antiplatelet therapy 2. Transfer patient [facility] for surgical revascularization 3. Aggressive risk factor modification 4. LDL less than 55 to be achieved with high intensity statin Electronically signed by : Boy Bahena MD 05/31/2022 13:27:25
--- NOTE | 2022-05-31 05:44 | PC.NURSE ---
no acute distress, lungs CTA bilaterally, telemetry reveals NSR with rate 65-80; abd soft distended, nontender; voiding without difficulty, pt without edema, alert and oriented x4, skin pwd, pt denies chest pain and has slept most of the night.
--- NOTE | 2022-05-31 07:09 | EXP.PHA.VTE ---
[facility] Pharmacy VTE Monitoring Patient Demographics Admission date: 05/30/22 Report Date: 05/31/22 Time: 07:09 Patient Allergies atorvastatin [From Lipitor] Allergy (Mild, Verified 05/30/22 11:12) Unknown allergy reaction azithromycin Allergy (Mild, Verified 05/30/22 11:12) Unknown allergy reaction Penicillins Allergy (Mild, Verified 05/30/22 11:12) Unknown allergy reaction Iodinated Contrast Media Adverse Reaction (Verified 05/30/22 11:16) Height: 1.68 m Weight: 115.468 kg VTE Risk Labs: VTE Related Lab Results Hgb 12.6 g/dL (14.1-18.0) L 05/30/22 16:29 Hct 37.5 % (42.0-52.0) L 05/30/22 16:29 Plt Count 291 K/mm3 (142-424) 05/30/22 16:29 BUN 20 mg/dl (9-20) 05/30/22 16:29 Creatinine 0.80 mg/dl (0.66-1.25) 05/30/22 16:29 Estimated Creat Clear 174 mL/min (50-200) 05/30/22 16:29 VTE Risk Level: Very Low Risk Prophylaxis VTE Prophylaxis Ordered?: Yes Types of VTE Prophylaxis: TEDS Knee High Location of Applied Device: Bilateral Lower Extremeties
--- NOTE | 2022-05-31 07:20 | HMH.PHAINT1 ---
Pharmacy Intervention Comments: MEDICATION RECONCILIATION COMPLETED ON PATIENT USING EXTERNAL FILL HISTORY FROM PHARMACY AND LIST FROM CARDIOLOGY OFFICE. -EVERARDO HAYWOOD, LAITHD
[2022-05-31 08:50] LABS: Coronavirus 19, PCR Not Detected (NotDetected); Influenza A, PCR Not Detected (NotDetected); Influenza B, PCR Not Detected (NotDetected)
--- NOTE | 2022-05-31 09:54 | EXP.CARD.PN ---
Subjective Subjective Date: 05/31/22 Time: 09:54 Principal diagnosis: Non-ST elevation DE Interval history: 52-year-old white male in bed in no acute distress. Denies any chest pain overnight. He is scheduled for cardiac catheterization today. Hemoglobin A1c noted to be 10.7 this admission With triglycerides 481, cholesterol 224, LDL 99.6 and HDL 24 Exam Data for Last 24 hours Vital signs and Labs for Last 24 Hours: Temp Pulse Resp BP Pulse Ox 97.9 F 80 18 152/80 H 96 05/31/22 08:53 05/31/22 08:53 05/31/22 08:53 05/31/22 08:53 05/31/22 08:53 Laboratory Results - last 24 hr 05/30/22 11:48: WBC 6.4, RBC 4.57 L, Hgb 12.9 L, Hct 39.4 L, MCV 86.3, MCH 28.2, MCHC 32.7, RDW 15.1, Plt Count 316, MPV 8.0, Neut % (Auto) 61.8, Lymph % (Auto) 28.3, Alpine % (Auto) 5.8, Eos % (Auto) 3.0, Baso % (Auto) 1.1, Neut # (Auto) 3.9, Lymph # (Auto) 1.8, Alpine # (Auto) 0.4, Eos # (Auto) 0.2, Baso # (Auto) 0.1 05/30/22 11:48: Sodium 139, Potassium 4.6, Chloride 103, Carbon Dioxide 25, Anion Gap 15.6 H, BUN 25 H, Creatinine 0.80, Estimated GFR 101, Est GFR ( Amer) 122, Glucose 276 H, Calcium 8.9, Total Bilirubin < 0.1 L, Direct Bilirubin 0.0, Conjugated Bilirubin 0.0, Indirect Bilirubin 0.1, Unconjugated Bilirubin 0.1, AST 41, ALT 35, Alkaline Phosphatase 87, Total Protein 6.2 L, Albumin 3.9, TSH < 0.02 L 05/30/22 11:48: Free T4 2.15 05/30/22 11:48: Troponin I 0.06 H 05/30/22 16:29: WBC 6.4, RBC 4.45 L, Hgb 12.6 L, Hct 37.5 L, MCV 84.3, MCH 28.4, MCHC 33.6, RDW 15.0, Plt Count 291, MPV 7.8, Neut % (Auto) 59.8, Lymph % (Auto) 29.7, Alpine % (Auto) 6.2, Eos % (Auto) 2.9, Baso % (Auto) 1.4, Neut # (Auto) 3.8, Lymph # (Auto) 1.9, Alpine # (Auto) 0.4, Eos # (Auto) 0.2, Baso # (Auto) 0.1 05/30/22 16:29: Sodium 140, Potassium 4.2, Chloride 104, Carbon Dioxide 25, Anion Gap 15.2 H, BUN 20, Creatinine 0.80, Estimated Creat Clear 174, Estimated GFR 101, Est GFR ( Amer) 122, Glucose 201 H D, Calcium 8.7, Total Bilirubin 0.3, Direct Bilirubin 0.1, Conjugated Bilirubin 0.0, Indirect Bilirubin 0.2, Unconjugated Bilirubin 0.2, AST 42, ALT 36, Alkaline Phosphatase 84, Troponin I 0.06 H, Total Protein 6.5, Albumin 4.0, Triglycerides 481 H, Cholesterol 224 H, LDL Cholesterol Direct 99.63 L, HDL Cholesterol 24 L, Cholesterol/HDL Ratio 9.3 H 05/30/22 16:29: Hemoglobin A1c 10.7 H 05/30/22 21:52: Troponin I 0.06 H 05/30/22 22:03: POC Glucose 296 H 05/31/22 08:42: SARS-CoV-2 (PCR) Not detected, Influenza A Untype (PCR) Not detected, Influenza Type B (PCR) Not detected I & O for Last 24 hours: Intake & Output 05/28/22 05/29/22 05/30/22 05/31/22 11:59 11:59 11:59 11:59 Intake Total 360 / 360 Output Total 0 / 0 Balance 360 / 360 Weight 254 lb 9 oz Constitutional Constitutional: no acute distress *Routine Respiratory Exam Respiratory: Present CTA bilaterally; Absent rhonchi or wheezes *Routine Cardiovascular Exam Cardiovascular: Present RRR; Absent murmur or gallop *Routine Extremities Exam Extremities: Present edema and pulses intact; Absent calf tenderness *Routine Neurological Exam Neurological: Present alert, oriented X3 and CN II-XII intact Progress Note: A&P Assessment and plan (1) NSTEMI (non-ST elevated myocardial infarction): Status: Acute (2) CAD (coronary artery disease): Status: Chronic (3) Hypertensive heart disease: Status: Chronic (4) HLD (hyperlipidemia): Status: Chronic (5) Pulmonary HTN: Status: Chronic (6) Diabetes mellitus: Status: Chronic (7) Fibrosis of lung: Status: Chronic (8) Chronic pericarditis: Status: Chronic (9) COPD (chronic obstructive pulmonary disease): Status: Chronic Assessment and Plan Assessment and Plan for All Diagnoses:: Plan for left heart catheterization today. Further recommendations to follow. Possible discharge home later today.
--- NOTE | 2022-05-31 11:57 | PC.NURSE ---
Patient states he gets nauseated after Heart Cath procedure (has had multiple heart caths in past). Received v.o. from ARMIDA Reza for Scopolamine 1.5mg/72 hours patch to be placed behind ear
--- NOTE | 2022-05-31 12:46 | PC.NURSE ---
one unmeasured void
--- NOTE | 2022-05-31 13:44 | PC.NURSE ---
recvd call from Karina at [facility] requesting information for patient's transfer. Will return call when bed is available.
--- NOTE | 2022-05-31 15:14 | PC.NURSE ---
Addendum entered by Hayley Johnson RN 05/31/22 19:54: Called report to [facility] spoke with CEDRICK Martinez; [facility] called Addendum entered by Hayley Johnson RN 05/31/22 19:15: Recvd call from Sahil at [facility] patient has room available in [place] [facility] 8th floor room 135; called report to [phone] nurse - Michelle getting report, left my name and number to return call. Original Note: Recvd call from Delores Milner at [facility] stating they have a bed available for patient but it is not ready yet. As soon as bed is available she will call back with room and unit.
--- NOTE | 2022-05-31 16:57 | PC.NURSE ---
Patient resting post heart cath with at bedside; VSS, No stents placed will be transferred to [facility] for CABG per Shruti. Recvd call from [facility] stating patient has been added to transfer list and a 2nd call from [facility] stating they have a room available for patient and will notify us when it is ready. Patient is still NPO. No acute distress noted, call light within reach, bed at lowest level for safety.
--- NOTE | 2022-05-31 16:59 | EXP.HPDC ---
General Admission date:: 05/30/22 Discharge date: 05/31/22 *Admission Date: 05/30/22 *Chief complaint: Chest Pain *History of present illness: Cardiology clinic 05/30/2022 for ongoing chest pain which she reports as his typical angina. Labs drawn revealed troponin positive at 0.06 and is consistent with non-ST elevated myocardial infarction, patient contacted return to [facility] for admission with plan for cardiac catheterization today [facility] Medical History (Updated 05/30/22 @ 15:20 by ARMIDA Arthur) Blurry vision, right eye CAD (coronary artery disease) Chest pain COPD (chronic obstructive pulmonary disease) Diabetes mellitus Diastolic dysfunction Dyspnea Encounter for pre-operative cardiovascular clearance History of myocardial infarction (~01/01/17) HLD (hyperlipidemia) Hypertensive heart disease Hyperthyroidism Muscle ache Other forms of angina pectoris Pulmonary HTN Pulmonary nodule Social History (Updated 05/30/22 @ 15:21 by Hayley Johnson RN) Smoking Status: Former smoker alcohol intake: never substance use type: denies use current occupational status: unemployed Travel in the last 8 weeks: Inside the [facility] caregiver/support person: Yes household members: spouse and family housing: house lives independently: No marital status: education level: high school service: No custodial: No current occupational exposures/hazards: No diet: diabetic Review of Systems Constitutional Constitutional: Reports system reviewed and no additional complaints, except as documented, Denies anorexia, Denies fever(s) and Denies headache(s) Eyes Eyes: Reports system reviewed and no additional complaints, except as documented, Denies change in vision and Denies diplopia ENT Ears, Nose, Mouth, and Throat: Reports system reviewed and no additional complaints, except as documented, Denies dizziness, Denies headache(s) and Denies throat swelling *Cardiovascular Cardiovascular: Reports chest pain at rest, Reports chest pain with activity, Reports dyspnea, Reports dyspnea on exertion and Reports edema *Respiratory Respiratory: Reports dyspnea and Reports dyspnea on exertion *Gastrointestinal Gastrointestinal: Reports system reviewed and no additional complaints, except as documented, Denies constipation and Denies diarrhea *Genitourinary Genitourinary: Reports system reviewed and no additional complaints, except as documented *Musculoskeletal Musculoskeletal: Reports system reviewed and no additional complaints, except as documented, Denies arthralgias and Denies numbness *Neurologic Neurologic: Reports system reviewed and no additional complaints, except as documented, Denies dizziness, Denies headache(s) and Denies numbness Psychiatric Psychiatric: Reports system reviewed and no additional complaints, except as documented, Denies anxiety and Denies depression Endocrine Endocrine: Reports system reviewed and no additional complaints, except as documented, Denies cold intolerance and Denies heat intolerance Hematologic/Lymphatic Hematologic/Lymphatic: Reports system reviewed and no additional complaints, except as documented, Denies easy bleeding and Denies easy bruising Allergic/Immunologic Allergic/Immunologic: Reports system reviewed and no additional complaints, except as documented, Denies GI upset with certain foods and Denies throat swelling Exam Data for Last 24 hours Vital signs and Labs for Last 24 Hours: Temp Pulse Resp BP Pulse Ox 97.9 F 65 17 161/92 H 97 05/31/22 12:00 05/31/22 14:00 05/31/22 14:00 05/31/22 14:00 05/31/22 14:00 Laboratory Results - last 24 hr 05/30/22 16:29: Sodium 140, Potassium 4.2, Chloride 104, Carbon Dioxide 25, Anion Gap 15.2 H, BUN 20, Creatinine 0.80, Estimated Creat Clear 174, Estimated GFR 101, Est GFR ( Amer) 122, Glucose 201 H D, Calcium 8.7, Total Bilirubin 0.3, Direct Bilirubin 0.1, Conjugated Biliru
--- NOTE | 2022-05-31 17:54 | PC.NURSE ---
one unmeasured void
[2022-05-31 19:35] LABS: POC Glucose,Bedside 212 (70-110)
--- NOTE | 2022-05-31 21:03 | PC.NURSE ---
PT LEFT FLOOR VIA STRETCHER WITH EMS AT THIS TIME.
== END 2022-05-31 21:03 | disposition short-term general hospital (02) | DRG 282 ==
LOC: 2ND 13:27
PROVIDERS: Internal Medicine; Nurse Practitioner Family; Physician Assistant; Admitting Provider Family Medicine; PCP Family Medicine; Visit Provider Family Medicine
PROC: 4A023N7 Measurement of Cardiac Sampling and Pressure, Left Heart, Percutaneous Approach (ICD-10-PCS; principal; 2022-05-31 13:00)
DX: E11.9 Type 2 diabetes mellitus without complications; E78.2 Mixed hyperlipidemia; I25.10 Atherosclerotic heart disease of native coronary artery without angina pectoris; I25.2 Old myocardial infarction; I27.20 Pulmonary hypertension, unspecified; J43.9 Emphysema, unspecified; Z79.4 Long term (current) use of insulin; I10 Essential (primary) hypertension; I21.4 Non-ST elevation (NSTEMI) myocardial infarction
CPT/HCPCS: 36415; 71046; 80048; 80061; 80076; 82962; 83036; 84439; 84443; 84484; 85025; 93306; 93458; 99152; C1725; C1760; C1769; C9803; J1644; Q9967; U0003; U0005

== ENCOUNTER 2023-09-10 07:38 | Day surgery (SDC) | payer BC, MEDICARE, SELFPAY ==
[2023-09-10] VITALS (18 sets, daily range): BP systolic 104–173; BP diastolic 64–95; PULSE 64–78; RESP 16–20; TEMP 36.6; O2SAT 94–98; BMI 36.8
--- NOTE | 2023-09-10 07:08 | IR_ITS ---
APPROVED REPORT Patient Location: Outpatient PROCEDURES Left heart catheterization Left ventriculogram Selective coronary angiogram Selective engagement of the left internal mammary artery to the LAD Selective engagement of the saphenous vein graft to the first diagonal artery Selective engagement of the saphenous vein graft to the ramus intermedius which then skipped over to the obtuse marginal artery Selective engagement of saphenous vein graft to the posterior descending artery INDICATION Coronary artery disease, Recent coronary bypass surgery, Accelerated and recalcitrant angina pectoris Informed consent was obtained prior to the procedure. COMPLICATIONS None Estimated Blood Loss: Less than 10 mls TECHNIQUE One percent lidocaine used to anesthetize the right groin. The right femoral artery was accessed via the Seldinger technique and a 5 [place] sheath was placed in the right femoral artery. A JL 4, JR4 and multipurpose catheter were used to perform left heart catheterization, left ventriculogram selective coronary angiography as well as selective engagement of the 3 vein grafts and the left internal mammary artery. At the end of the procedure the patient was transferred to the postop holding area in stable condition for sheath removal. ANGIOGRAPHIC RESULTS The left main artery Widely patent The left anterior descending artery Ostially occluded The circumflex artery Gives rise to a large ramus intermedius which has severe proximal stenoses and then subtotally occluded in the midportion. The circumflex artery has proximal 80% stenosis and then occluded proximal to the stent The right coronary artery Is codominant and has severe 80 to 90% mid vessel stenoses. Distally the vessel is subtotally occluded The HOWE ventriculogram reveals Slightly hyperdynamic at 75% The left ventricular end-diastolic pressure 15 mmHg BAZAN to LAD patent Saphenous to first diagonal artery patent. The graft and diagonal artery itself are small Saphenous to small ramus intermedius is patent in the graft and skips over to a terminal obtuse marginal artery off the circumflex artery and is also patent. Saphenous to PDA is small but patent IMPRESSION Complete surgical revascularization as described above Hyperdynamic ventricle Normal LVEDP PLAN 1. Maximize antianginal medications 2. Recommend higher dose of beta-neelima and/or addition of verapamil to decrease hyperdynamic ventricle which is likely etiology for the angina 3. Aggressive risk factor modification Electronically signed by : Boy Bahena MD 09/10/2023 11:33:07
--- NOTE | 2023-09-10 07:46 | CA_ITS ---
APPROVED REPORT EXAM: Comprehensive 2D, Doppler, and color-flow Echocardiogram Operations Tech: Portia Palacio, SHAR, RVS Ht: 5 ft 6 in Wt: 228lbs BSA: 2.11 BP: 173/96 mmHg Indications: CAD, COPD, CABG, CP, MR, DM, Ex-smoker, Diastolic dysfunction 2D Dimensions IVSd 0.93 cm LVEF (Visual) 48.60 % PWd 0.90 cm LA Volume 49.90 mL LVDd 4.74 cm LA Volume Index 23.007876 mL/m2 (M/F) 16-34 LVDs 3.58 cm EF AP4 45.90 % Aortic Root 2.90 cm GL Strain -15.2 % Left Atrium 4.05 cm RVID Base (AP4) 3.54 cm (M/F) 2.5-4.1 LVOT 1.94 cm (M/F) 1.5-2.5 M-Mode Dimensions RVDd 2.86 cm (0.9-2.6) LVDd 4.74 cm (3.5-5.7) Ao Diam 2.76 cm (2.0-3.7) LVDs 4.43 cm (3.5-5.7) IVSd 0.96 cm (0.6-1.1) PWd 0.82 cm (0.6-1.1) EF (Teich) 42.30% EPSs 0.54 cm FS 22.17% EDV (Teich) 154.30 mL TAPSE 1.15 (<1.7) ESV (Teich) 89.10 mL LV Diastology E Decel Time 181 (160-240 msec) E/A Ratio 1.55 MED E' 6.2 (>= 7 cm/sec) MED A' 8.70 cm/s E'/MED E' Ratio 18.45 (<= 14) LAT E' 9.3 (>= 10 cm/sec) LAT A' 6.50 cm/s E/LAT E' Ratio 12.30 (<= 14) Aortic Valve LVOT Max 85.0 (70-110 cm/s) EDWAR Index 1.17 cm2/m2 LVOT VTI 17.79 cm AoV Peak Caden. 93.0 (50-130 cm/s) AO Mean GR. 1.70 (<5 mmHg) AO VTI 21.4 (18-25 cm) EDWAR (VTI) 2.46 (2.5-4.5 cm2) Mitral Valve MV E Max Caden. 114.0 (40-130 cm/s) MV A Velocity 74.0 (40-130 cm/s) E/A Ratio 1.55 MV Decel. Time 181 (160-240 ms) Left Ventricle The left ventricle is normal size. The left ventricular systolic function is normal. The left ventricular ejection fraction is within the normal range. There is increased LV wall thickness. There is normal LV segmental wall motion. Diastolic function is indeterminate. LVEF is 55%. Right Ventricle The right ventricle is moderately to severely dilated. Right ventricle is mildly hypokinetic. Atria The left atrium size is normal. The right atrium size is normal. There is no Doppler evidence of interatrial shunt. Aortic Valve The aortic valve is mildly thickened. There is no aortic valvular stenosis. Trace aortic regurgitation. Mitral Valve The mitral valve leaflets are mildly thickened. No evidence of mitral valve stenosis. Trace mitral regurgitation. Tricuspid Valve The tricuspid valve leaflets are thin and pliable. Trace tricuspid regurgitation. There is insufficient TR jet to estimate RVSP. Pulmonic Valve The pulmonary valve is normal in structure. Trace pulmonic regurgitation. Great Vessels The aortic root is normal in size. The ascending aorta is normal in size. IVC is normal in size and collapses >50% with inspiration. Pericardium There is no pericardial effusion. Other Information Study Quality: Technically Difficult Conclusion Technically difficult study due to poor acoustic windows. Normal LV systolic function. Moderate to severe RV dilation with mild RV dysfunction. No significant valvular stenosis or regurgitation. Electronically signed by : Wendi Menendez MD 09/13/2023 00:15:31
[2023-09-10 08:35] LABS: Basophils # 0.1 K/mm3 (0-0.2); Basophils % 1.5 % (0.1-2.0); Eosinophils # 0.3 K/mm3 (0.0-0.4); Eosinophils % 4.4 % (0.1-12.0); Hematocrit 45.1 % (42.0-52.0); Hemoglobin 15.4 g/dL (14.1-18.0); Lymphocytes # 2.3 K/mm3 (0.7-4.5); Lymphocytes % 30.1 % (10-50); Mean Corpuscular HGB Conc 34.1 g/dL (31.8-35.4); Mean Corpuscular Hemoglobin 28.7 pg (27.0-31.2); Mean Corpuscular Volume 84.2 fl (80-94); Mean Platelet Volume 7.8 fl (7.4-10.4); Monocytes # 0.6 K/mm3 (0.1-1.0); Monocytes % 7.4 % (1.7-9.3); Neutrophils # 4.3 K/mm3 (1.8-7.8); Neutrophils % 56.6 % (37.0-80.0); Platelet Count 306 K/mm3 (142-424); Red Blood Count 5.35 M/mm3 (4.60-6.20); Red Cell Distribution Width 14.4 % (11.5-17.5); White Blood Count 7.5 K/mm3 (4.8-10.8)
[2023-09-10 08:57] LABS: Blood Urea Nitrogen 28 mg/dl (9-20); Calcium 8.7 mg/dl (8.4-10.2); Carbon Dioxide 29 mmol/L (22.0-30.0); Chloride 103 mmol/L (98-107); Creatinine Clearance Estimated 124 mL/min (50-200); Estimated Glomerular Filt Rate 78 ml/min (>60); GFR (African American) 94 ML/MIN (>60); Glucose 146 mg/dl (74-100); Sodium 135 mmol/L (136-145)
[2023-09-10] MEDS: diphenhydrAMINE 50MG/ML VIAL 50 MG IV (11:08)
[2023-09-10] MEDS: NITROGLYCERIN 800MCG/8ML SYR (CATH LAB) 800 MCG IA (11:08)
[2023-09-10] MEDS: VERAPAMIL 2.5MG/ML 2ML VIAL 2.5 MG IV (11:08)
[2023-09-10] MEDS: LIDOCAINE 1% 10ML MDV 20 ML IJ (11:08)
[2023-09-10] MEDS: 0.9 % SODIUM CHLORIDE 500 ML 25 ML IV (11:09)
[2023-09-10] MEDS: HEPARIN 1,000 UNITS/500ML NS (CATH LAB) 3000 UNIT IV (11:09)
[2023-09-10] MEDS: PROMETHAZINE HCL 25MG/ML 1ML VIAL 25 MG IV (11:13)
[2023-09-10] MEDS: FENTANYL 100MCG/2ML VIAL 50 MCG IV (11:23)
[2023-09-10] MEDS: MIDAZOLAM HCL 1MG/1ML 5ML VIAL 1 MG IV (11:23)
[2023-09-10] MEDS: IOPAMIDOL-370 (76%);100ML BOTTLE 80 ML IV (12:04)
--- NOTE | 2023-09-10 12:49 | SUR.PHASEII ---
1223 received bedside report from Katiuska Gage RN. pt is able to sit up at 1354, 1454 pt may walk and leave at 1454 as well. pt has a femoral site, site is cdi. pt reports no pain or needs at this time.
== END 2023-09-10 14:58 | disposition home or self-care (01) ==
PROVIDERS: PCP Family Medicine; Visit Provider Internal Medicine
DX: I25.110 Atherosclerotic heart disease of native coronary artery with unstable angina pectoris (principal); E78.5 Hyperlipidemia, unspecified; I11.9 Hypertensive heart disease without heart failure; I25.2 Old myocardial infarction; I27.20 Pulmonary hypertension, unspecified; J44.9 Chronic obstructive pulmonary disease, unspecified; E11.9 Type 2 diabetes mellitus without complications; Z95.1 Presence of aortocoronary bypass graft
CPT/HCPCS: 80048; 85025; 93306; 93459; 99152; C1725; C1769; C1894; J1644; Q9967

== ENCOUNTER 2025-08-11 11:36 | Outpatient (CLI) | payer MEDICARE, BC, SELFPAY ==
[2025-08-11 12:03] LABS: Hematocrit 41.4 % (42.0-52.0); Hemoglobin 13.9 g/dL (14.1-18.0); Immature Granulocytes % 0.7 %; Mean Corpuscular HGB Conc 33.6 g/dL (31.8-35.4); Mean Corpuscular Hemoglobin 28.4 pg (27.0-31.2); Mean Corpuscular Volume 84.7 fl (80-94); Nucleated Red Blood Cells % 0 %; Platelet Count 305 K/mm3 (142-424); Red Blood Count 4.89 M/mm3 (4.60-6.20); Red Cell Distribution Width-SD 43.1 fL; White Blood Count 8.2 K/mm3 (4.8-10.8)
[2025-08-11 12:36] LABS: Albumin Level 4.1 g/dl (3.5-5.0)
[2025-08-11 12:37] LABS: Chloride 102 mmol/L (98-107); Potassium 4.7 mmoL/L (3.5-5.1); Sodium 139 mmol/L (136-145)
[2025-08-11 12:39] LABS: Alanine Aminotransferase 46 U/L (12-78); Alkaline Phosphatase 89 U/L (38-126); Anion Gap 13.7 mEq/L (5-15); Aspartate Amino Transferase 44 U/L (17-59); Bilirubin,Direct 0.0 mg/dl (0.0-0.4); Bilirubin,Indirect 0.3 mg/dL (0.0-0.9); Bilirubin,Total 0.3 mg/dl (0.2-1.3); Bilirubin,Unconjugated 0.3 mg/dL (0.0-1.1); Blood Urea Nitrogen 22 mg/dl (9-20); Carbon Dioxide 28 mmol/L (22.0-30.0); Cholesterol 211 mg/dl (140-200); Creatinine,Serum 1.10 mg/dl (0.66-1.25); Estimated Glomerular Filt Rate 69 ml/min (>60); GFR (African American) 84 ML/MIN (>60); Total Protein,Serum 7.1 g/dl (6.3-8.2)
[2025-08-11 12:40] LABS: Calcium 9.2 mg/dl (8.4-10.2); Glucose 115 mg/dl (74-100); HDL Cholesterol 27 mg/dl (40-60); Magnesium 1.9 mg/dl (1.6-2.3)
[2025-08-11 12:42] LABS: Triglycerides 512 mg/dl (30-150)
[2025-08-11 12:57] LABS: Free T4 (Free Thyroxine) 1.07 ng/dl (0.78-2.19)
[2025-08-11 13:11] LABS: Thyroid Stimulating Hormone 10.20 uIU/mL (0.465-4.68)
== END 2025-08-11 23:59 | disposition home or self-care (01) ==
PROVIDERS: PCP Family Medicine; Visit Provider Nurse Practitioner
DX: I25.708 Atherosclerosis of coronary artery bypass graft(s), unspecified, with other forms of angina pectoris (principal); E78.2 Mixed hyperlipidemia; I11.9 Hypertensive heart disease without heart failure
CPT/HCPCS: 36415; 80048; 80061; 80076; 83735; 84439; 84443; 85025